=== PATIENT | male | born 1950 | race African-American/Black ===

== ENCOUNTER 2018-11-06 12:30 | Inpatient (IN) ==
[2018-11-06] MEDS ORDERED: NS 1,000 ML IV ONE ×2 (13:07→16:57)
--- NOTE | 2018-11-06 13:19 | Diag Imaging Result Doc PS360 ---
CHEST-PORTABLE - 11/06/2018 INDICATION: ams COMPARISON: None FINDINGS: The lungs are normally expanded and clear. Heart size and mediastinal contours are normal. No pneumothorax or pleural effusion. IMPRESSION: Negative exam. Electronically signed by Jorge Perez 11/06/2018 1:17 PM
[2018-11-06 13:26] LABS: BE 5.4 mmoll (-3.0-3.0); BLOOD TYPE ARTERIAL; HCO3-(ACT) 29.1 mmoll (20.0-26.0); METHB 1.1 % (0.0-1.5); O2(CT) 16.8 mL/dL (15.0-23.0); PCO2(98.6) 49 mmHg (35-45); PO2(98.6) 81 mmHg (60-100); SAMPLE BLOOD; SAO2 97.9 % (95.0-100.0); THB 12.5 g/dL (11.5-17.4); pH(98.6) 7.41 (7.35-7.45)
[2018-11-06 13:27] LABS: ALLEN TEST NO; MODALITY ROOM AIR
--- NOTE | 2018-11-06 13:35 | EKG Report ---
Test Performed on : 11/06/2018 1:17:02 PM Test Reason : ams Blood Pressure : / mmHG Vent. Rate : 074 BPM Atrial Rate : 074 BPM P-R Int : 172 ms QRS Dur : 082 ms QT Int : 364 ms P-R-T Axes : 058 011 047 degrees QTc Int : 404 ms Normal sinus rhythm. ST elevation, consider early repolarization, pericarditis, or injury Abnormal ECG No previous ECGs available Unconfirmed Result
[2018-11-06 13:52] LABS: BASO# 0.03 X1000 (0.0-0.2); BASO% 0.3 % (0.0-0.8); EOS# 0.14 X1000 (0.0-0.7); EOS% 1.3 % (0.0-10.0); HEMATOCRIT 43.5 % (42.0-52.0); HEMOGLOBIN 13.5 g/dL (14.0-18.0); IMM GRAN# 0.04 X1000 (0.0-0.04); IMM GRAN% 0.4 % (0.0-0.5); LYMPH# 1.51 X1000 (1.2-3.4); LYMPH% 13.8 % (20.5-51.1); MCH 26.5 PG (27-31); MCV 85.3 FL (81-99); MPV 12.8 FL (7.4-10.4); NEUT# 8.14 X1000 (1.4-6.5); NEUT% 74.2 % (42.2-75.2); PLT 188 X1000 (130-400); RDW 15.4 % (11.5-14.5); WBC 10.96 X1000 (4.8-10.8)
[2018-11-06 14:04] LABS: INR 0.97; PROTIME 13.7 Seconds (11.0-16.0)
[2018-11-06 14:23] LABS: CREATININE 1.6 mg/dL (0.7-1.2); MAGNESIUM 2.2 mg/dL (1.5-2.7); POTASSIUM 4.5 mmol/L (3.5-5.1); TOTAL BILIRUBIN 0.45 mg/dL (0.20-1.00); VALPROIC ACID 31.1 ug/mL (50-100)
[2018-11-06 14:24] LABS: CALCIUM 14.5 mg/dL (8.8-10.2)
--- NOTE | 2018-11-06 14:50 | PROVIDER DOCUMENTATION ---
This chart was entered by Karolina Mckeon Scribe, acting as scribe for Matt Dhillon MD. HPI-General Adult - General Chief Complaint: Weakness Stated Complaint: change in mental status Time Seen by Provider: 11/06/18 13:02 Source: patient, family Allergies/Adverse Reactions: Patient Allergies Allergy/AdvReac Type Severity Reaction Status Date / Time No Known Allergies Allergy Verified 11/06/18 14:28 Home Medications: Home Medication List Medication Instructions Recorded Confirmed Last Taken Type ATORVAstatin [Lipitor] 40 mg PO QHS 06/07/17 06/19/18 06/06/17 History Amlodipine [Norvasc] 5 mg PO DAILY 06/07/17 06/19/18 06/07/17 History Aspirin [Aspir-Low] 81 mg PO DAILY 06/07/17 06/19/18 06/07/17 History Atenolol 12.5 mg PO DAILY 06/19/18 06/19/18 Unknown History Travoprost [Travatan Z] 1 drop BOTH EYES HS 06/19/18 06/19/18 Unknown History Divalproex [Depakote Sprinkle] 375 mg PO QHS #90 cap 07/25/18 Unknown Rx Ergocalciferol (Vitamin D2) 50,000 unit PO Q7D #8 cap 07/25/18 Unknown Rx [Vitamin D] Fluoxetine [Prozac] 20 mg PO QAM #30 cap 07/25/18 Unknown Rx Medroxyprogesterone [Provera] 15 mg PO DAILY 30 Days tab 07/25/18 Unknown Rx Melatonin 5 mg PO QHS tablet 07/25/18 Unknown Rx Mirtazapine [Remeron] 15 mg PO QHS #30 tab 07/25/18 Unknown Rx Multivit,Fe,Ca,FA & Min [Thera M 1 each PO DAILY tablet 07/25/18 Unknown Rx Plus] Paliperidone Palmitate [Invega 234 mg IM Q30D #1 syringe 07/25/18 Unknown Rx Sustenna] Risperidone [Risperdal] 0.5 mg PO BID #60 tab 07/25/18 Unknown Rx Trazodone [Desyrel] 50 mg PO QHS #30 tab 07/25/18 Unknown Rx - History of Present Illness -Gen Adult Nature of Presenting Problems: 68 yobm presents to the ed via ems with c/o progressive decline in last 2 weeks. pt has family (niece) at bedside and sts pt has just seemed more weak and sleepy then in the past. pt is at SNF and family sts that when she goes to feed pt he will eat and drink but facility sts he had decreased appetite. pt on exam is lethargic but can be aroused by voice but quickly falls back to sleep Location of Pain/Injury: reports: generalized (weakness) Quality of Pain: reports: none Severity: reports: moderate Timing: reports: still present Context/Activities at Onset: reports: light activity Modifying Factors: improves with: nothing Associated Symptoms: reports: fatigue, weakness. denies: back/neck pain, chest pain, cough, fever/chills, nausea, shortness of breath, vomiting Similar Symptoms Previously?: Yes Recently seen or treated by another doctor?: No Review of Systems - Adult - REVIEW OF SYSTEMS - ADULT ROS:: ROS per family Constitutional: reports: see HPI, fatique. denies: chills, fever Eyes: reports: no symptoms reported Ears, Nose, Mouth & Throat: reports: no symptoms reported Cardiovascular: reports: no symptoms reported Respiratory: denies: cough, shortness of breath, wheezing Gastrointestinal: denies: abdominal pain, diarrhea, nausea, vomiting Genitourinary: reports: no symptoms reported Musculoskeletal: reports: see HPI, muscle weakness Integumentary: reports: no symptoms reported Neurological: denies: dizziness/vertigo, headache/migraines, slurred speech Psychiatric: reports: no symptoms reported Endocrine: reports: no symptoms reported Hematologic/Lymphatic: reports: no symptoms reported Allergic/Immunologic: reports: no symptoms reported All Other Systems: Reviewed and Negative Past History - Adult - PAST MEDICAL HISTORY-ADULT Review of Records: reports: Old Records Reviewed, Nursing Assessment Review, Medications Reviewed, Social history reviewed & non-contributory. Major Childhood Illnesses: reports: denies history Cardiovascular: reports: HTN Respiratory: reports: denies history Gastrointestinal: reports: denies history Obstetrical/Gynecological: reports: denies history Genitourinary: reports: denies history Musculoskeletal: reports: denies history Hand Dominance: Right Handed Neurological: reports: CVA, dementia Psychiatric: reports: schizophrenia Endocrine/Immune: reports: denies history Other Conditions: reports: denies history - PRIOR SURGERIES/PROCEDURES Surgical/Procedure History: reports: reviewed, not pertinent - IMMUNIZATION STATUS Childhood Immunizations: See Nurse Assessment Flu Vaccine: See Nurse Assessment - FAMILY HISTORY Family History: reviewed, not pertinent - SOCIAL HISTORY Smoking: non-smoker Substance Use: none/never Living Situation: care facility ([facility]) Physical Exam-General - PHYSICAL EXAM-ADULT Exam Limited by: pt will wake to voice but is not verbal. will follow commands to open eyes Initial Vital Signs Reviewed: Yes - CONSTITUTIONAL General Appearance: no apparent distress, lethargic, slow to respond - EYES Eyes: PERRL/EOMI, pale conjunctivae - HEAD, EARS, NOSE, MOUTH & THROAT HENMT: other (food seen on tongue). negative: moist mucous membranes (dry) - NECK Neck: normal inspection - RESPIRATORY Respiratory: chest non-tender, lungs clear, normal breath sounds - CARDIOVASCULAR Cardiovascular: normal peripheral pulses, regular rate, rhythm - GASTROINTESTINAL (ABDOMEN) Abdominal Exam: normal bowel sounds, soft - LYMPHATIC Lymphatic: no adenopathy - MUSCULOSKELETAL Extremity: no calf tenderness, normal capillary refill, pelvis stable - SKIN Integumentary: normal color, warm/dry. negative: normal turgor (poor skin turgor) - PSYCHIATRIC Psych/Mental Status: other (pt will follow command to open eyes but will not speak on exam) Progress - PLAN OF CARE/RESULTS Progress/Plan/Lab Results: Vital Signs - 8 hr 11/06/18 13:01 Temperature 98.3 F Pulse Rate 73 Respiratory Rate 16 Blood Pressure 136/83 O2 Sat by Pulse Oximetry 100 Orders Category Date Time Status Finger Stick Blood Sugar (ED) DIRECTED Care 11/06/18 13:05 Active Nursing- Obtain EKG once Care 11/06/18 13:05 Active Saline Loc NOW Care 11/06/18 13:05 Active CHEST-PORTABLE [RAD] Stat Exams 11/06/18 13:[address] HEAD W/O CONTRAST [CT] Stat Exams 11/06/18 13:07 Ordered ABG [RESP] Routine Lab 11/06/18 13:06 Ordered CBC WITH ELECTRONIC DIFF [HEME] Stat Lab 11/06/18 13:06 Uncollected COMPREHENSIVE METABOLIC PANEL [CHEM] Stat Lab 11/06/18 13:06 Uncollected MAGNESIUM [CHEM] Stat Lab 11/06/18 13:06 Uncollected PRO B-NATRIURETIC PEPTIDE Stat Lab 11/06/18 13:06 Uncollected PROTIME WITH INR [COAG] Stat Lab 11/06/18 13:06 Uncollected TROPONIN T Stat Lab 11/06/18 13:06 Uncollected TSH Stat Lab 11/06/18 13:06 Uncollected URINALYSIS W/POSS RFLX CULT [URINALYSIS] Stat Lab 11/06/18 13:06 Uncollected VALPROIC ACID [TDM] Stat Lab 11/06/18 13:06 Uncollected 0.9% Sodium Chloride Inj [Ns] 1,000 ml Med 11/06/18 13:07 Active IV 999 mls/hr EKG [EKG] Stat Ther 11/06/18 13:06 Ordered Result Diagrams: 11/06/18 13:35 11/06/18 13:35 - REASSESSMENT Reassessment #1 Time Reassessed: 14:37 Status: unchanged Reassessment #2 Time Reassessed: 14:48 Status: improving (Given IVF bolus. Extensive discussions with family RE DNR and palliative care consult ordered in ED. Patient is DNR per family. Needs admission for hydration/hypernatremia) - EKG 1 Time of EKG reading by physician:: 13:17 EKG Read and Signed by:: Matt Dhillon EKG Interpretation (*Must complete 3 of following elements*): Abnormal Rate: 74 Rhythm: nsr [place]: normal QRS: normal [place] Interval: normal Comments: st elevation, consider early repolarization, pericarditis or injury - XRAY 1 XRAY: Bilateral XRAY Study: Chest Impression: See EMR Report (CHEST-PORTABLE - 11/06/2018 INDICATION: ams COMPARISON: None FINDINGS: The lungs are normally expanded and clear. Heart size and mediastinal contours are normal. No pneumothorax or pleural effusion. IMPRESSION: Negative exam. Electronically signed by Jorge Perez 11/06/2018 1:17 PM 11/06/18 [id number] Interpreting Physician: Jorge Perez MD Dictated Date/Time: 11/06/18 1328 cc: Matt Dhillon MD; Torrey Benavidez MD) - CONSULTS/PCP/HOSPITALIST Notification #1 *Consult/PCP/Hospitalist*: dr quiñones [facility] Time Discussed: 14:37 Consult Disposition: Admit Departure - Departure Date of Disposition Decision: 11/06/18 Time of Disposition Decision: 14:49 DIAGNOSIS: Dehydration with hypernatremia Altered mental status, unspecified Qualifiers: Altered mental status type: somnolence Qualified Code(s): R40.0 - Somnolence Disposition: ADMITTED INPATIENT 09 Certified Medical Emergency: Emergent Condition: Fair Referrals and Follow-Ups: Torrey Benavidez MD [Primary Care Provider] - - Critical Care Note This patient required my direct & personal management of CC.: Yes Total Time (mins): 35 Critical Care Statement: This patient required my direct personal management to treat or rule out processes, the absence of which, could potentiallly result in sudden, clinically significant life or limb threatening deterioration. Attestation - Physician/ DESTINEY Attestation Patient care was provided by Advanced Practice Provider:: No The physician spent face to face time with patient:: Yes Advanced Practice Provider documentation review:: Supervising physician onsite and consulted in the evaluation and care of this patient. The physician did have a face to face encounter with the patient. This chart was documented by the indicated scribe, (Karolina Mckeon Scribe) and accurately reflects the services I performed and decisions made by me, Matt Dhillon MD, as attested by the provider's signature.
--- NOTE | 2018-11-06 15:30 | Diag Imaging Result Doc PS360 ---
EXAM: CT HEAD W/O CONTRAST - 11/06/2018 HISTORY: ams TECHNIQUE: CT head without contrast COMPARISON: 06/19/2018 FINDINGS: There are some atrophic changes and chronic microvascular ischemic changes similar to prior. There is no indication of recent infarct, although acute infarcts may not be immediately visible. There is no evidence of skull fracture. IMPRESSION: No visible acute intracranial abnormality. This exam was performed using automated exposure control, adjustment of mA or kV according to patient size, and/or use of iterative reconstruction technique. Electronically signed by Estiven Smith 11/06/2018 3:28 PM
[2018-11-06 16:23] LABS: URINE SOURCE CATH
[2018-11-06 16:26] LABS: BILIRUBIN URINE NEGATIVE (NEGATIVE); BLOOD URINE NEGATIVE (NEGATIVE); COLOR YELLOW; GLUCOSE URINE NEGATIVE (NEGATIVE); KETONE URINE NEGATIVE (NEGATIVE); LEUKOCYTES URINE NEGATIVE (NEGATIVE); NITRITE URINE NEGATIVE (NEGATIVE); PROTEIN URINE NEGATIVE (NEGATIVE); SP GRAVITY URINE 1.016; TURBIDITY URINE CLEAR (CLEAR); UROBILINOGEN URINE NORMAL (NORMAL)
[2018-11-06 16:27] LABS: UR EPITHELIAL CELLS <10 /HPF (<10); URINE BACTERIA NEGATIVE /HPF; URINE RBC <10 /HPF (<10); URINE WBC <10 /HPF (<10)
[2018-11-06] MEDS ORDERED: TYLENOL PO PRN (16:57)
[2018-11-06] MEDS ORDERED: ZOFRAN IV PRN (16:57)
--- NOTE | 2018-11-06 17:02 | HISTORY AND PHYSICAL ---
Mr. Vicente is in the dementia unit I believe at [facility] and the report is that the last couple weeks he has been more lethargic and less cooperative, not eating or drinking much and there is concern and I think family wanted him evaluated. Past medical history includes Alzheimer dementia, he is a patient of Dr. Chintan Troncoso. He has a history of being at [place] in 2012 and 2016 for psychosis. He was admitted here on 06/15/2018 after collapsing on the front porch in front I think the porch collapsed on him and collapsed on his niece by report and apparently had admissions more for psychiatric evaluation and care. He come in the hospital. He had pulled out his IV and [place] catheter and thought people were trying to kill him. ACT team started behavior therapy, they discharged with a diagnosis including acute encephalopathy, right lower lobe pneumonia, urinary tract infection, history of schizophrenia, history of depression, history of CVAs suggested on his CT scan, however was unable to get an MRI at that time. Suspected possible seizures. However an EEG was canceled as well. ALLERGIES: No known drug allergies. MEDICATIONS: Will review his home medications. PAST MEDICAL HISTORY: Once again best we can tell 1. Schizophrenia. 2. Urinary tract infection. 3. Questionable seizures. 4. Hypertension. 5. Glaucoma. 6. History of CVAs. PAST SURGICAL HISTORY: No documented surgery. SOCIAL HISTORY: Lives at [facility]. He used to smoke 2 packs a day for over 50 years. Alcohol on occasion. No illegal drugs. FAMILY HISTORY: No history of mental illness. Other pertinent medical history listed on past records. REVIEW OF SYSTEMS: Unable to obtain from him but according to the snf he is more lethargic, has less incentive, seems to be not eating or drinking as much, not sure if there is any significant weight loss that was not documented. No history of complaints of chest pain or shortness of breath or signs of focal pain or focal neurologic changes. PHYSICAL EXAM: Temperature 98.3 degrees, pulse 69, respirations 18, blood pressure 133/80. Pupils are equal. Conjunctivae is pink. Sclerae clear. No distended neck veins. I did not appreciate any cervical, supraclavicular adenopathy. LUNGS: Clear anterior lateral in all lung camacho. Breathing comfortably. CARDIOVASCULAR: Regular rhythm and rate without murmur or S3. PMI nondisplaced. Carotid, radial, femoral pulses 2+ and symmetrical. ABDOMEN: Soft, nondistended, nontender. Positive bowel sounds. No pedal edema. LAB: White count 10,960, hematocrit 43, platelet count 188,000, sodium 154, potassium 4.5, chloride 116, BUN was 30, creatinine 1.6, calcium was 14.5, osmolality 313, AST 107, ALT is 375, alkaline phosphatase 118, TSH 0.62, albumin was 4.0. Pro time 13.7, INR was 0.97. Valproic acid level is 31 which is low. Urinalysis unremarkable. Blood gas pH 7.41, pCO2 49, PO2 is 81, O2 saturation 97% that is on room air. Chest x-ray negative, lungs are normally expanded and clear, heart size and mediastinal contours are normal. No pneumothorax or pleural effusion. Head CT without contrast no visible acute intracranial abnormalities. ASSESSMENT AND PLAN: 1. Hypercalcemia. Calcium is 14.5. We will give him some normal saline and run it in at 125 mL an hour and we will send off for free calcium and parathyroid hormone level. Will also check his magnesium, will check thyroid with T4 and TSH, we have a TSH which is normal but we will check T4 and TSH. 2. Hypernatremia and suspect he is intravascular volume depleted so hypovolemia, hypernatremia. Once again will give some normal saline and see if we can hydrate him and see this will improve. 3. Underlying Alzheimer dementia. 4. Not sure about his nutritional status. Will see how he does with p.o. intake. 5. Questionable history of seizure. He is on Depakote, review of his medications he is on Lipitor 40 mg a day, Norvasc 5 mg a day, aspirin 81 mg a day, atenolol 12.5 mg a day, divalproex which is Depakote 375 mg p.o. at bedtime, vitamin D2 50,000 units p.o. daily, Prozac 20 mg a day, Provera 15 mg p.o. every 30 days medroxyprogesterone, melatonin 5 mg at bedtime, Remeron 15 mg at bedtime, multivitamin 1 a day, Invega Sustenna 234 mg IM every 30 days, Risperdal 0.5 mg b.i.d. and Desyrel 50 mg at bedtime, travoprost eye drops 1 drop both eyes at bedtime will continue those medications. cc: Ramone Reyes MD
[2018-11-06 17:39] LABS: CALCIUM 14.3 mg/dL (8.8-10.2); PHOSPHORUS 2.3 mg/dL (2.7-4.5)
[2018-11-06] MEDS: NS 1,000 ML IV SCH (18:59)
[2018-11-07] MEDS: NS 1,000 ML IV SCH ×3 (06:48→19:04)
[2018-11-07 08:20] LABS: BASO# 0.03 X1000 (0.0-0.2); BASO% 0.3 % (0.0-0.8); EOS# 0.17 X1000 (0.0-0.7); EOS% 1.6 % (0.0-10.0); HEMATOCRIT 35.3 % (42.0-52.0); HEMOGLOBIN 10.8 g/dL (14.0-18.0); IMM GRAN# 0.03 X1000 (0.0-0.04); IMM GRAN% 0.3 % (0.0-0.5); LYMPH# 1.92 X1000 (1.2-3.4); LYMPH% 18.6 % (20.5-51.1); MCH 26.4 PG (27-31); MCHC 30.6 g/dL (33-37); MCV 86.3 FL (81-99); MONO# 0.96 X1000 (0.11-0.59); MONO% 9.3 % (1.7-9.3); MPV 12.7 FL (7.4-10.4); NEUT# 7.22 X1000 (1.4-6.5); NEUT% 69.9 % (42.2-75.2); PLT 170 X1000 (130-400); RBC 4.09 XMIL (4.7-6.1); RDW 14.9 % (11.5-14.5); WBC 10.33 X1000 (4.8-10.8)
[2018-11-07 09:06] LABS: AGAP 6; ALBUMIN 3.2 g/dL (3.5-5.0); ALKALINE PHOSPHATASE 90 U/L (32-122); BUN 26 mg/dL (8-22); CHLORIDE 121 mmol/L (98-107); COSMO 313; CREATININE 1.4 mg/dL (0.7-1.2); ESTIMATED GFR > 60; GLUCOSE 75 mg/dL (70-104); GOT 85 U/L (10-34); GPT 271 U/L (10-44); MAGNESIUM 1.9 mg/dL (1.5-2.7); POTASSIUM 4.4 mmol/L (3.5-5.1); SODIUM 156 mmol/L (136-145); TCO2 29 mmol/L (25-35); TOTAL BILIRUBIN 0.46 mg/dL (0.20-1.00); TOTAL PROTEIN 6.5 g/dL (6.3-8.3)
--- NOTE | 2018-11-07 09:58 | Diag Imaging Result Doc PS360 ---
CHEST-PORTABLE - 11/07/2018 INDICATION: fu COMPARISON: 11/06/2018 FINDINGS: The lungs are normally expanded and clear. Heart size and mediastinal contours are normal. No pneumothorax or pleural effusion. IMPRESSION: Negative exam. Electronically signed by Jorge Perez 11/07/2018 9:56 AM
--- NOTE | 2018-11-07 15:08 | Diag Imaging Result Doc PS360 ---
EXAM: PARATHYROID W/SPECT 11/07/2018 HISTORY: elevated PTH elevated CA TECHNIQUE: Parathyroid scan with SPECT, 20.5 mCi of technetium 99m sestamibi COMMENT: The patient was scanned at 20 minutes and two hours. There is a focal area of increased activity present in the right neck. This is more conspicuous on the 20 minute images and the coronal SPECT images. IMPRESSION: Right parathyroid adenoma. Electronically signed by Rizwan Perez 11/07/2018 3:06 PM
--- NOTE | 2018-11-07 17:31 | PROGRESS NOTE ---
DATE: 11/07/2018 SUBJECTIVE: Mr. Vicente is a little more awake and alert. He has remained afebrile. OBJECTIVE: Vital signs: Temperature 98.9 degrees, pulse 60, respirations 18, blood pressure 148/62. HEENT: Pupils are equal and round. Lungs: Clear in all lung camacho. Cardiovascular: Regular rhythm and rate without murmur or S3. Abdomen: Soft. Skin: Warm and dry. I noticed she has a large skin tag on the upper back which is a little bit irritated from laying on it. LABORATORY: Review today white count 10,330, hematocrit 35, platelet count 170,000. Sodium was a little higher at 156, potassium 4.4, chloride 121, BUN 26, creatinine 1.4, which has come down from 1.6 yesterday. Calcium still running at 14. His thyroid was 0.99 and TSH was 0.62. Repeat chest x-ray was negative. Parathyroid scan, right parathyroid adenoma appreciated and his parathyroid level was 208 consistent with primary hyperparathyroidism. PLAN: Continue IV fluids. Will review his medications. He has underlying dementia as well. MEDICATIONS: He was taking Lipitor 40 mg at bedtime, Norvasc 5 mg a day, aspirin 81 mg a day, atenolol 12.5 mg daily, Depakote Sprinkles 375 at bedtime, vitamin D 02163 units weekly, Prozac 20 mg q.a.m., lactulose 20 mg q.a.m., Provera 15 mg a day, melatonin 10 mg at bedtime, Remeron 15 mg at bedtime, Risperdal 1 mg daily, Travatan eye drops, and Desyrel 100 mg at bedtime. cc: Ramone Reyes MD
--- NOTE | 2018-11-07 19:41 | Diag Imaging Result Doc PS360 ---
US SOFT TISSUE HEAD/NECK - 11/07/2018 INDICATION: Evaluate for thyroid nodules; hyperparathyroidism TECHNIQUE: Ultrasound thyroid COMPARISON: Parathyroid scan 11/07/2018 FINDINGS: The exam was challenging due to patient combativeness. There is a tiny cyst in the right lobe of the thyroid measuring 3 mm. There are a couple small nodules on the left side. One in the upper pole measures 7 mm. One in the lower pole measures about 1.3 cm. No fluid collections. IMPRESSION: Suboptimal exam due to patient factors. Small echogenic abnormalities in the thyroid. Electronically signed by Jorge Perez 11/07/2018 7:39 PM
--- NOTE | 2018-11-07 20:33 | GENERAL SURGERY CONSULTATION ---
DATE: 11/07/2018 HISTORY OF PRESENT ILLNESS: This is a 68-year-old gentleman. He does have a psychiatric history that consists of schizophrenia and dementia. He apparently has had worsening mental status over the last 3-4 months. He has become more lethargic, less cooperative, not eating and drinking very much. His niece became concerned. He was brought for lab work and found to be hypercalcemic, with an elevated PTH of 200. He is admitted for management of this with IV fluids. CT of the head showed no acute intracranial process. He did have a parathyroid localization scan that showed a right parathyroid adenoma and a thyroid ultrasound that shows multinodular goiter. PAST MEDICAL HISTORY: 1. Schizophrenia. 2. Hypertension. 3. Depression. 4. Dementia. 5. History of questionable seizures. 6. Glaucoma. 7. History of CVA. PAST SURGICAL HISTORY: No surgery documented. No cervical history. SOCIAL HISTORY: He lives at [facility]. He does smoke 2 packs a day for 50 years. Occasional alcohol. His only family member is a niece. FAMILY HISTORY: Reviewed and significant for mental illness. REVIEW OF SYSTEMS: Ten-point negative that is able to be obtained, mostly from his niece. PHYSICAL EXAMINATION: Temperature is 98.9 degrees, pulse 63, blood pressure 148/62, oxygen saturation 97%. In general he is alert, appears to be in no acute distress but nonconversant. On cervical exam there are no masses. There is no adenopathy. No scars. Cardiovascular: Normal rate. Pulmonary: No increased work of breathing. Abdomen is soft, nontender, nondistended. Integument is warm and dry. Psychiatric: Not verbally responsive. Neurologic: Generalized slowing. He does not really follow commands, but he is alert. Lymphatic: No cervical, axillary or inguinal adenopathy. Peripheral vascular: Well perfused in the lower extremities. LABORATORY DATA: White count is 10, hematocrit 35. Creatinine is 1.4. His Calcium was as high as 14.3, is 14 currently. Phosphorus is low at 2.3. Bilirubin is normal. AST, ALT mildly elevated. Intact PTH is 208. Urinalysis is clear. ASSESSMENT AND PLAN: This is a 68-year-old gentleman with primary hyperparathyroidism. He has apparent [id number] psychiatric changes, and I have recommended, given the level of his elevated calcium, proceeding to the operating room tomorrow for a parathyroidectomy with intraoperative parathyroid hormone monitoring. He has a nuclear medicine scan localized to the right. Thyroid ultrasound shows many benign cystic-appearing nodules bilaterally. I discussed risks of bleeding, infection, neurovascular injury and persistent or recurrent symptoms with his niece. She understands and consents. We will plan to go the operating room tomorrow for this. cc: Thaddeus Sanders MD MTDD
[2018-11-07] MEDS: DEPAKOTE SPRINKLE PO SCH (21:36)
[2018-11-07] MEDS: MELATONIN PO SCH (21:36)
[2018-11-07] MEDS: DESYREL PO SCH (21:36)
[2018-11-07] MEDS: REMERON PO SCH (21:36)
[2018-11-07] MEDS: TRAVATAN 0.004% OPH SOLN BOTH EYES SCH (21:37)
[2018-11-08] MEDS: NS 1,000 ML IV SCH ×4 (01:52→18:56)
[2018-11-08] MEDS ORDERED: XYLOCAINE 1%/EPI 1:100,000 ONE (06:52)
[2018-11-08] MEDS ORDERED: MARCAINE 0.25% PF ONE (06:52)
[2018-11-08 08:18] LABS: AGAP 6; ALBUMIN 3.4 g/dL (3.5-5.0); ALKALINE PHOSPHATASE 100 U/L (32-122); BUN 27 mg/dL (8-22); CHLORIDE 117 mmol/L (98-107); COSMO 302; CREATININE 1.3 mg/dL (0.7-1.2); ESTIMATED GFR > 60; GLUCOSE 74 mg/dL (70-104); GOT 78 U/L (10-34); GPT 246 U/L (10-44); MAGNESIUM 1.8 mg/dL (1.5-2.7); PHOSPHORUS 2.4 mg/dL (2.7-4.5); POTASSIUM 4.3 mmol/L (3.5-5.1); SODIUM 150 mmol/L (136-145); TCO2 27 mmol/L (25-35); TOTAL BILIRUBIN 0.44 mg/dL (0.20-1.00); TOTAL PROTEIN 6.7 g/dL (6.3-8.3)
[2018-11-08] MEDS ORDERED: SENSORCAINE-MPF 0.5%/EPI 1:200,000 ONE (09:33)
[2018-11-08] MEDS ORDERED: SODIUM CHLORIDE 0.9% 10 ML ONE (09:41)
[2018-11-08] MEDS ORDERED: XYLOCAINE-MPF 2% ONE (09:41)
[2018-11-08] MEDS ORDERED: NORCURON ONE (09:41)
[2018-11-08] MEDS ORDERED: DIPRIVAN 1% ONE (09:41)
[2018-11-08] MEDS ORDERED: QUELICIN (DOSE) ONE (09:42)
[2018-11-08] MEDS ORDERED: KEFZOL 2 GM/D5W 2 GM/50 ML IVPB ONE (09:53)
[2018-11-08] MEDS ORDERED: FENTANYL ONE (10:35)
[2018-11-08] MEDS: LACTULOSE PO SCH (10:46)
[2018-11-08] MEDS: PROVERA PO SCH (10:47)
[2018-11-08] MEDS: THERA M PLUS PO SCH (10:47)
[2018-11-08] MEDS ORDERED: NEOSTIGMINE ONE (11:57)
[2018-11-08] MEDS ORDERED: ROBINUL ONE (11:57)
--- NOTE | 2018-11-08 13:16 | PROGRESS NOTE ---
DATE: 11/08/2018 SUBJECTIVE: He is scheduled for a parathyroidectomy and presented with hypercalcemia. He does have underlying dementia, but seemed to have altered mental status, increased sedation, and very lethargic. The family had noticed a change. OBJECTIVE: On exam, he is awake. He appears to be comfortable. Temperature 97.3 degrees, pulse 83, respirations 16, and blood pressure 143/69. Pupils are equal and round. Lungs are clear in all lung camacho. Cardiovascular regular rhythm and rate without murmur or S3. Urine output is 3700 mL. ASSESSMENT AND PLAN: 1. Hypercalcemia primary hyperparathyroidism. Appears to have an adenoma on the right side for surgery. He is going to have surgery this morning. 2. History of seizure disorder. Continue his Depakote. 3. History of vitamin D deficiency. Continue vitamin D at a later point. Right now, we are holding it because of hypercalcemia. 4. History of depression and psychiatric issues. I think he was even diagnosed with schizophrenia and underlying dementia. I wonder how much of the hypercalcemia play a role in that so we will see how we do. LABORATORIES: His calcium this morning was 14 with an albumin of 3.4, creatinine 1.3, and sodium 150 which has come down. Potassium 4.3, chloride 117, and BUN 27. cc: Ramone Reyes MD
[2018-11-08] MEDS: PROZAC PO SCH (14:52)
[2018-11-08] MEDS: RISPERDAL PO SCH (14:52)
--- NOTE | 2018-11-08 17:14 | OPERATIVE NOTE ---
PROCEDURE DATE: 11/08/2018 PREOPERATIVE DIAGNOSIS: Primary hyperparathyroidism with psychosis. POSTOPERATIVE DIAGNOSES: Primary hyperparathyroidism with psychosis. PROCEDURE PERFORMED: 1. Right-sided parathyroidectomy. 2. Intraoperative PTH monitoring. ANESTHESIA: General. ESTIMATED BLOOD LOSS: 20 mL. SPECIMENS: 1. Right inferior parathyroid. 2. Right superior parathyroid adenoma. INDICATIONS: This is a 68-year-old gentleman who has a history of well- controlled schizophrenia, who has become progressively more somnolent and nonverbal over the last 4 months. He was admitted for further workup of this and found to be profoundly hypercalcemic with elevated PTH nuclear medicine located in the right side of the neck. OPERATIVE FINDINGS: There was a normal appearing parathyroid gland at the inferior location anterior to the recurrent laryngeal nerve and a large parathyroid adenoma in the superior position posterior to the upper lobe of the thyroid. Preoperative PTH was 170 and holding, it fell to 68 after removal of the parathyroid adenoma. OPERATIVE NOTE: Risks, benefits, alternatives were discussed with his next of kin, his niece, and she consented to procedures. He was seen preoperatively. Surgical site was confirmed. He was taken to the operating room, placed supine position. General anesthesia induced. His neck was extended and his shoulders placed on a bump and his bilateral neck, chest prepped with Betadine and draped in usual fashion. After time-out, we made a transverse incision, carried this down through the platysma and divided the strap muscles along the midline. We gained exposure with a Weitlaner and mobilized the strap muscles off the right lobe of the thyroid. We extended this laterally. The middle thyroid vein was identified, and was divided with the LigaSure device. We also took some of the inferior pole vessels after identifying the recurrent laryngeal nerve. It coursed in its usual location. There was a small parathyroid anterior to the nerve, which we did remove, passed off to the back table and preserved in case we were to retransplant that. However, shortly thereafter we identified a large adenoma posterior to the upper lobe of the thyroid that we circumferentially dissected off. We placed a clip on the feeding vessel, passed it off protecting the recurrent laryngeal nerve through this process. At 10 minutes, we senthil from the internal jugular vein. A PTH that had dropped to 94. We closed the neck and a subsequent PTH drawn 15 to 20 minutes after it dropped to 68. The strap muscles, after confirming hemostasis, were closed with interrupted 3-0 Vicryl sutures. The platysma was closed with interrupted 3-0 Vicryl and the skin was closed with knotless 4-0 Monocryl. Dermabond was applied. He was awakened. There was no stridor. Transferred to recovery. Will follow his calcium and start him on supplementation. cc: Thaddeus Sanders MD MTDD
[2018-11-08 18:12] LABS: AGAP 8; BUN 27 mg/dL (8-22); CALCIUM 12.6 mg/dL (8.8-10.2); CHLORIDE 117 mmol/L (98-107); COSMO 301; CREATININE 1.4 mg/dL (0.7-1.2); ESTIMATED GFR > 60; GLUCOSE 90 mg/dL (70-104); MAGNESIUM 1.6 mg/dL (1.5-2.7); PHOSPHORUS 2.2 mg/dL (2.7-4.5); POTASSIUM 3.9 mmol/L (3.5-5.1); SODIUM 149 mmol/L (136-145); TCO2 24 mmol/L (25-35)
[2018-11-08] MEDS ORDERED: MAGNESIUM SULFATE 2 GM/S.W.I. 2 GM/50 ML IVPB IV ONE (19:30)
[2018-11-08] MEDS: REMERON PO SCH (20:20)
[2018-11-08] MEDS: TRAVATAN 0.004% OPH SOLN BOTH EYES SCH (20:20)
[2018-11-08] MEDS: DESYREL PO SCH (20:20)
[2018-11-08] MEDS: DEPAKOTE SPRINKLE PO SCH (20:20)
[2018-11-08] MEDS: MELATONIN PO SCH (20:20)
[2018-11-08] MEDS ORDERED: CALCIUM GLUCONATE 1 GM in NS 50 ML IV ONE (21:00)
[2018-11-08] MEDS ORDERED: OSCAL 500 PO SCH (21:00)
[2018-11-09] MEDS: NS 1,000 ML IV SCH ×3 (00:12→16:58)
[2018-11-09] MEDS: LACTULOSE PO SCH (08:30)
[2018-11-09] MEDS: PROZAC PO SCH (08:31)
[2018-11-09] MEDS: PROVERA PO SCH (08:31)
[2018-11-09] MEDS: RISPERDAL PO SCH (08:32)
[2018-11-09] MEDS: THERA M PLUS PO SCH (08:32)
[2018-11-09] MEDS ORDERED: CALCIUM GLUCONATE 1 GM in NS 50 ML IV ONE (09:00)
[2018-11-09] MEDS ORDERED: CALCIUM GLUCONATE IV ONE (09:00)
[2018-11-09 10:23] LABS: AGAP 6; BUN 25 mg/dL (8-22); CALCIUM 10.6 mg/dL (8.8-10.2); CHLORIDE 121 mmol/L (98-107); COSMO 303; CREATININE 1.4 mg/dL (0.7-1.2); ESTIMATED GFR > 60; GLUCOSE 72 mg/dL (70-104); POTASSIUM 4.1 mmol/L (3.5-5.1); SODIUM 151 mmol/L (136-145); TCO2 24 mmol/L (25-35)
--- NOTE | 2018-11-09 13:47 | GENERAL SURGERY PROGRESS NOTE ---
DATE: 11/09/2018 SUBJECTIVE: More alert but still nonconversant. Neck wound is flat. He is not taking anything p.o. OBJECTIVE: No fevers, no tachycardia, blood pressure 143/61. LABORATORY DATA: I reviewed his labs. His calcium has fallen to 10.6 this morning. Magnesium last night was 1.6. ASSESSMENT AND PLAN: A 68-year-old gentleman status post parathyroidectomy on the right. We will continue IV calcium repletion as he not taken anything p.o., gluconate twice daily intravenously and transition this to x1. Monitor his calcium going forward. His pathology shows a 1.5 cm parathyroid adenoma in the superior gland and a hyperplastic parathyroid tissue inferiorly. Dr. Mckeon is following our patients over the weekend. I have discussed this patient with him. cc: Thaddeus Sanders MD
--- NOTE | 2018-11-09 14:39 | PROGRESS NOTE ---
DATE: 11/09/2018 SUBJECTIVE: He is resting comfortably. Did not arouse. Breathing comfortably. OBJECTIVE: Remains afebrile. Temperature 97.9 degrees, pulse 60, respirations 15, and blood pressure 143/61. Pupils are equal and round. Lungs are clear in all lung camacho anterolateral. Cardiovascular exam regular rhythm and rate without murmur or S3. Urine output was 5300 mL so a good urine output. ASSESSMENT AND PLAN: 1. Hypercalcemia, hyperparathyroidism, right-sided adenoma which was removed by Dr. Sanders. 2. History of seizure disorder. He is on Depakote. 3. Vitamin D deficiency. We are going to hold the vitamin D for now. 4. Depression. History of psychiatric illness. Continue present orders and see how we do. FOLLOWUP LABORATORIES: White count 10,330, hematocrit 35 and platelet count 170,000. Electrolytes this morning, calcium is down to 10, sodium 151, potassium 4.1, chloride 121, BUN 25, and creatinine 1.4. MEDICATIONS: This review of orders getting Depakote 375 mg at bedtime, melatonin 10 mg at bedtime, Remeron 15 mg at bedtime, Desyrel 100 mg at bedtime, Prozac 20 mg every morning, lactulose 30 mL p.o. b.i.d., medroxyprogesterone 50 mg p.o. daily, multivitamin 1 a day, normal saline 125 mL an hour. He gets paliperidone 234 mg IM q.30 hours. Risperidone 1 mg daily. Travoprost eyedrops both eyes at night. cc: Ramone Reyes MD
[2018-11-09] MEDS: DEPAKOTE SPRINKLE PO SCH (20:30)
[2018-11-09] MEDS: MELATONIN PO SCH (20:30)
[2018-11-09] MEDS: REMERON PO SCH (20:30)
[2018-11-09] MEDS: TRAVATAN 0.004% OPH SOLN BOTH EYES SCH (20:30)
[2018-11-09] MEDS: DESYREL PO SCH (20:30)
[2018-11-10] MEDS: NS 1,000 ML IV SCH (02:55)
[2018-11-10] MEDS: PROZAC PO SCH (10:04)
[2018-11-10] MEDS: LACTULOSE PO SCH (10:04)
[2018-11-10] MEDS: PROVERA PO SCH (10:04)
[2018-11-10] MEDS: RISPERDAL PO SCH (10:04)
[2018-11-10] MEDS: THERA M PLUS PO SCH (10:04)
[2018-11-10] MEDS: 1/2 NS 1,000 ML IV SCH ×2 (11:26→19:41)
--- NOTE | 2018-11-10 11:38 | PROGRESS NOTE ---
DATE: 11/10/2018 SUBJECTIVE: His niece was at the bedside. He did wake up this morning and was talking. He is sleeping repeat comfortably at the present time. OBJECTIVE: Vital Signs: On exam, temperature 98.8 degrees, pulse 57, respirations 18, blood pressure 162/63. Eyes: Pupils are equal and round. Neck: No distended neck veins. Lungs: Clear anterolateral. Cardiovascular exam: Regular rhythm and rate without murmur or S3. Abdomen: Soft. Skin: Warm and dry. : Urine output is 4500 mL. ASSESSMENT AND PLAN: 1. Hypercalcemia, hyperparathyroidism, right-sided adenoma, status post resection, doing well. Calcium has come back to normal. He is waking up. 2. Questionable history of seizure disorder. He is on Depakote. 3. Vitamin D deficiency. Continue vitamin D. 4. Depression and questionable history of schizophrenia. Currently, he is on some medications. I think we will stop his Depakote I think that we will continue the Remeron for now, and we will continue the Risperdal and his paliperidone and put him on a full liquid diet. We will get physical therapy to start working with him, and I will change his fluid from normal saline to one-half normal saline, still run it at 125 mL an hour for now as his sodium is still a little elevated. cc: Ramone Reyes MD
[2018-11-10] MEDS: DESYREL PO SCH (19:59)
[2018-11-10] MEDS: MELATONIN PO SCH (19:59)
[2018-11-10] MEDS: TRAVATAN 0.004% OPH SOLN BOTH EYES SCH (20:00)
[2018-11-10] MEDS: REMERON PO SCH (20:00)
[2018-11-11] MEDS: 1/2 NS 1,000 ML IV SCH ×3 (03:59→20:35)
[2018-11-11 06:54] LABS: AGAP 9; ALB/GLOB RATIO 0.9; ALBUMIN 2.8 g/dL (3.5-5.0); ALKALINE PHOSPHATASE 88 U/L (32-122); BUN 17 mg/dL (8-22); CALCIUM 10.4 mg/dL (8.8-10.2); CHLORIDE 114 mmol/L (98-107); COSMO 293; ESTIMATED GFR > 60; GLUCOSE 79 mg/dL (70-104); GOT 49 U/L (10-34); GPT 123 U/L (10-44); MAGNESIUM 1.8 mg/dL (1.5-2.7); PHOSPHORUS 2.6 mg/dL (2.7-4.5); POTASSIUM 3.2 mmol/L (3.5-5.1); SODIUM 147 mmol/L (136-145); TCO2 24 mmol/L (25-35); TOTAL BILIRUBIN 0.46 mg/dL (0.20-1.00); TOTAL PROTEIN 5.8 g/dL (6.3-8.3)
[2018-11-11] MEDS: LACTULOSE PO SCH (10:20)
[2018-11-11] MEDS: PROVERA PO SCH (10:21)
[2018-11-11] MEDS: THERA M PLUS PO SCH (10:21)
[2018-11-11] MEDS: RISPERDAL PO SCH (10:21)
--- NOTE | 2018-11-11 13:06 | PROGRESS NOTE ---
DATE: 11/11/2018 SUBJECTIVE: Mr. Vicente is awake and alert. He is laying on his left side. He appears comfortable. He seemed to know he was in the hospital. I am not sure he knew the month or the year. He has been tolerating a liquid diet, swallowing okay by report. OBJECTIVE: Vital Signs: Temp 98 degrees, pulse 74, respirations 18, blood pressure 149/71. HEENT: Pupils are equal and round. Lungs: Clear in all lung camacho. Cardiovascular: Regular rhythm and rate without murmur or S3. Abdomen: Soft. Skin: Warm and dry. LABORATORY DATA: Potassium from yesterday was a little low at 3.2, calcium now is 10.4 with an underlying albumin of 2.8, and his sodium has come down to 147. Magnesium was 1.8. ASSESSMENT AND PLAN: 1. Hypercalcemia, hyperparathyroidism, right-sided parathyroid adenoma status post resection, doing well. Calcium has come back. Continue hydration. 2. Hypernatremia. This is improving. Continue one-half normal saline. Continue current hydration. 3. History of seizure disorder, questionable. I had gone ahead and stopped his Depakote. 4. History of depression and schizophrenia. Have continued him on Remeron 15 mg at bedtime, Desyrel 100 mg at bedtime, risperidone 1 mg daily, and I will supplement a little bit of potassium by mouth. cc: Ramone Reyes MD
[2018-11-11] MEDS: KLOR-CON PO SCH (13:37)
--- NOTE | 2018-11-11 16:43 | PROGRESS NOTE ---
DATE: 11/11/2018 Mr. Woodrow Carrasco for his 68-year-old male status post parathyroidectomy per Dr. Sanders. He has become more alert over the last 2 days. His wound is healing well. His calcium is 10.4. There is no evidence of hoarseness or other cranial nerve injury. cc: Andreia Mckeon MD
[2018-11-11] MEDS: MELATONIN PO SCH (19:52)
[2018-11-11] MEDS: DESYREL PO SCH (19:52)
[2018-11-11] MEDS: REMERON PO SCH (19:52)
[2018-11-11] MEDS: TRAVATAN 0.004% OPH SOLN BOTH EYES SCH (19:52)
[2018-11-12] MEDS: MELATONIN PO SCH ×2 (06:36→22:31)
[2018-11-12] MEDS: TRAVATAN 0.004% OPH SOLN BOTH EYES SCH ×2 (06:36→22:31)
[2018-11-12] MEDS: REMERON PO SCH ×2 (06:36→22:30)
[2018-11-12] MEDS: DESYREL PO SCH ×2 (06:36→22:30)
[2018-11-12 07:08] LABS: AGAP 7; BUN 11 mg/dL (8-22); CALCIUM 10.9 mg/dL (8.8-10.2); CHLORIDE 115 mmol/L (98-107); COSMO 291; ESTIMATED GFR > 60; GLUCOSE 86 mg/dL (70-104); MAGNESIUM 1.7 mg/dL (1.5-2.7); POTASSIUM 3.1 mmol/L (3.5-5.1); SODIUM 147 mmol/L (136-145); TCO2 25 mmol/L (25-35)
[2018-11-12] MEDS: KLOR-CON PO SCH (09:47)
[2018-11-12] MEDS: PROVERA PO SCH (09:47)
[2018-11-12] MEDS: RISPERDAL PO SCH (09:47)
[2018-11-12] MEDS: THERA M PLUS PO SCH (09:47)
[2018-11-12] MEDS: LACTULOSE PO SCH (09:48)
[2018-11-12] MEDS: 1/2 NS 1,000 ML IV SCH ×2 (11:27→16:39)
--- NOTE | 2018-11-12 17:53 | PROGRESS NOTE ---
DATE: 11/12/2018 SUBJECTIVE: Mr. Vicente was sleeping. He appeared comfortable. He was arousable but did not stay awake long. OBJECTIVE: Temperature 97.9 degrees, pulse 75, respirations 16, blood pressure 143/110. His blood pressures have been running between 131 and 152 over 65 to 80, so blood pressures have been under good control. ASSESSMENT AND PLAN: 1. Status post thyroid adenoma resection. Doing well. Hypercalcemia has come down nicely. Calcium is 10.9. Sodium has come down as well and is 147, potassium 3.1, chloride 115, BUN 11, creatinine 1.0. He is lethargic today, and I may decrease some of his medications. 2. Hyponatremia, improving. 3. History of seizure disorder, which is questionable. We did stop the Depakote. 4. He has a history of depression, schizophrenia. Of course the question is how long has he had this hypercalcemia. I am going to decrease his trazodone down to 50 mg at bedtime. We will continue to try and get physical therapy and see if we can improve his p.o. intake. His normal saline going at 85 mL an hour now, and he still on Risperdal 1 mg daily, medroxyprogesterone mg daily, lactulose 30 mL daily, Remeron 15 mg at bedtime, melatonin 10 mg. cc: Ramone Reyes MD MTDD
--- NOTE | 2018-11-12 17:59 | GENERAL SURGERY PROGRESS NOTE ---
DATE: 11/12/2018 SUBJECTIVE: He seems more alert. Still not really verbal. OBJECTIVE: Neck: On exam, his incision is flat. Vital signs: No fevers. No tachycardia. Blood pressure 143/110. General: His voice does sound strong but mostly just mumbling. LABORATORY: I reviewed his labs. Calcium is still mildly elevated 10.9, but this is down significantly from 14. Magnesium 1.7. Potassium is low. ASSESSMENT AND PLAN: This is a 68-year-old gentleman status post parathyroidectomy for primary hyperparathyroidism. Monitor his calcium for now. He is not on any supplementation other than potassium and a multivitamin. We will monitor him closely. cc: Thaddeus Sanders MD
[2018-11-13] MEDS: 1/2 NS 1,000 ML IV SCH ×4 (04:11→23:42)
[2018-11-13 08:33] LABS: AGAP 7; BUN 10 mg/dL (8-22); CALCIUM 10.6 mg/dL (8.8-10.2); CHLORIDE 108 mmol/L (98-107); COSMO 279; CREATININE 1.1 mg/dL (0.7-1.2); ESTIMATED GFR > 60; GLUCOSE 79 mg/dL (70-104); POTASSIUM 3.4 mmol/L (3.5-5.1); SODIUM 141 mmol/L (136-145); TCO2 26 mmol/L (25-35)
[2018-11-13] MEDS: PROVERA PO SCH (09:32)
[2018-11-13] MEDS: RISPERDAL PO SCH (09:33)
[2018-11-13] MEDS: LACTULOSE PO SCH (09:33)
[2018-11-13] MEDS: THERA M PLUS PO SCH (09:33)
[2018-11-13] MEDS: KLOR-CON PO SCH (09:34)
[2018-11-13] MEDS ORDERED: ATIVAN IV ONE (13:45)
--- NOTE | 2018-11-13 13:56 | PROGRESS NOTE ---
DATE: 11/13/2018 INTERVAL HISTORY: The patient is arousable with difficulty but immediately falls back asleep. Not really following commands with me currently, although was reportedly following limited commands with Nursing earlier and nursing reports intermittent agitation. No acute events overnight. REVIEW OF SYSTEMS: Unable to obtain secondary to patient mental status. LABORATORY DATA: Sodium 141, potassium 3.4, chloride 108, BUN 10, creatinine 1.1, glucose 79, calcium 10.6, albumin 2.9. PHYSICAL EXAMINATION: Vitals: T-max 98.5 degrees, pulse 89, respirations 16, blood pressure 142/70, O2 saturation 100% on room air. General: No acute distress. Vitals: As above. HEENT: Normocephalic, atraumatic. Moist mucous membranes. Neck: No cervical adenopathy. Anterior neck incision clean, dry, intact. Cardiovascular: Regular rate and rhythm with no murmurs, rubs, or gallops. Pulmonary: Clear to auscultation bilaterally. Abdomen: Soft, nontender, nondistended. Bowel sounds positive. Extremities: Peripheral pulses decreased but intact. No clubbing, cyanosis, or edema. Neurologic: Exam limited by patient's mental status, but face is symmetric. Pupils equal, round, reactive to light. Grimaces and withdraws to noxious stimuli in all 4 limbs. No focal deficits identified. Psychiatric: The patient is asleep, arousable with difficulty, does not really follow commands or speak currently. Skin: No new rashes or lesions identified. ASSESSMENT AND PLAN: 1. Hypercalcemia, primary parathyroid adenoma: Patient status post parathyroidectomy by Surgery. Hypercalcemia improved although remains mildly elevated with calcium 10.6, albumin 2. Awaiting further surgical recommendations. 2. Lethargy. The patient with history of dementia and schizophrenia quite somnolent and not very reactive today. Uncertain as to his exact baseline. We will continue monitoring for now, but may have to make further adjustment in his home medicines. Currently on his home medications invega, but off of Depakote. No seizure noted. Suspect he was on this for psychiatric reasons and may restart it if further agitation develops. 3. Hypernatremia. Much improved. We will continue to monitor. 4. History of schizophrenia and dementia. The patient in memory unit at [facility] prior to admission. The patient's home Depakote has been held, but still on his home risperidone and long-acting Invega as well as Remeron. Monitor mental status. [facility]O
--- NOTE | 2018-11-13 14:02 | GENERAL SURGERY PROGRESS NOTE ---
DATE: 11/13/2018 SUBJECTIVE: Mental status about the same. Neck flat. Calcium 10.6. No fevers, no tachycardia. Blood pressure 160/65. General. He is awake but not conversant. ASSESSMENT/PLAN: 68-year-old gentleman status post parathyroidectomy for primary hyperparathyroidism. Mental status slow to resolve. His calcium is better. Will continue current care holding calcium supplementation at this juncture. cc: Thaddeus Sanders MD
[2018-11-13] MEDS: MELATONIN PO SCH (20:37)
[2018-11-13] MEDS: DEPAKOTE SPRINKLE PO SCH (20:37)
[2018-11-13] MEDS: TRAVATAN 0.004% OPH SOLN BOTH EYES SCH (20:37)
[2018-11-13] MEDS: DESYREL PO SCH (20:38)
[2018-11-13] MEDS: REMERON PO SCH (20:38)
[2018-11-14] MEDS: 1/2 NS 1,000 ML IV SCH ×4 (04:15→23:35)
[2018-11-14 07:50] LABS: AGAP 7; BUN 8 mg/dL (8-22); CHLORIDE 111 mmol/L (98-107); COSMO 284; CREATININE 1.1 mg/dL (0.7-1.2); ESTIMATED GFR > 60; GLUCOSE 75 mg/dL (70-104); POTASSIUM 3.5 mmol/L (3.5-5.1); SODIUM 144 mmol/L (136-145); TCO2 26 mmol/L (25-35)
[2018-11-14] MEDS: THERA M PLUS PO SCH (09:57)
[2018-11-14] MEDS: RISPERDAL PO SCH (09:57)
[2018-11-14] MEDS: PROVERA PO SCH (09:57)
[2018-11-14] MEDS: KLOR-CON PO SCH (09:57)
[2018-11-14] MEDS: LACTULOSE PO SCH (09:59)
--- NOTE | 2018-11-14 13:50 | PROGRESS NOTE ---
DATE: 11/14/2018 INTERVAL HISTORY: The patient remains quite sedated. On discussion with nursing, he aroused and was cooperative with breakfast this morning. At the time of my exam, he withdraws to noxious stimuli but does not respond otherwise. Does not follow commands. No acute events overnight. REVIEW OF SYSTEMS: Unable to obtain secondary to the patient's mental status. LABS: Sodium 144, potassium 3.5, BUN 8, creatinine 1.1, calcium 10.0. VITAL SIGNS: Vital Signs: T-max 98.5, pulse rate is 66, blood pressure 138/67, respirations 18, O2 saturation 100% on room air. PHYSICAL EXAMINATION: General: No acute distress. Vital Signs: As above. HEENT: Normocephalic, atraumatic. Moist mucous membranes. No cervical lymphadenopathy. Anterior neck incision is clean, dry, and intact. Cardiovascular: Regular rate and rhythm. No murmurs, rubs, or gallops. Pulmonary: Clear to auscultation bilaterally. No wheezes, rales, or rhonchi noted. Abdomen: Soft, nontender, nondistended. Bowel sounds positive. Extremities: Peripheral pulses decreased but intact. No clubbing, cyanosis, or edema. Neurologic: Exam quite limited by patient's mental status but face is symmetric. Pupils equal, round, and reactive to light. Continues to grimace and withdraw to noxious stimuli in all four limbs. No clear focal deficits identified. Psychiatric: Patient is somnolent. Arousable only with difficulty. When eyelids are open, he does resist and track with eyes. Not really following commands or speaking to me currently, but will reportedly cooperate with nursing intermittently. Skin: No new rash or lesions identified. ASSESSMENT AND PLAN: 1. Hypercalcemia, primary parathyroid adenoma: The patient is status post thyroidectomy by surgery. Hypercalcemia now improved to the normal range. Likely discharge back to long-term care if/when cleared by surgery. 2. Lethargy: Patient with history of significant dementia and schizophrenia. Intermittently quite somnolent. This is likely at or near his baseline. Continue home medications. 3. Hypernatremia, resolved. Monitor. 4. History of schizophrenia and dementia. The patient was in a memory unit prior to admission. Patient continued on home medications. [facility]
--- NOTE | 2018-11-14 17:55 | GENERAL SURGERY PROGRESS NOTE ---
DATE: 11/14/2018 SUBJECTIVE: He is more conversive this morning and actually spoke to me. His calcium is down to 10. OBJECTIVE: His incision is fine. ASSESSMENT: A 68-year-old gentleman who is status post parathyroidectomy, doing well. He seems to be more alert and conversant. PLAN: Will continue current management. cc: Thaddeus Sanders MD
[2018-11-14] MEDS: DESYREL PO SCH (20:14)
[2018-11-14] MEDS: DEPAKOTE SPRINKLE PO SCH (20:14)
[2018-11-14] MEDS: MELATONIN PO SCH (20:14)
[2018-11-14] MEDS: REMERON PO SCH (20:14)
[2018-11-14] MEDS: TRAVATAN 0.004% OPH SOLN BOTH EYES SCH (23:35)
[2018-11-15] MEDS: 1/2 NS 1,000 ML IV SCH ×2 (06:26→15:44)
[2018-11-15 08:03] LABS: AGAP 8; BUN 7 mg/dL (8-22); CALCIUM 10.6 mg/dL (8.8-10.2); CHLORIDE 110 mmol/L (98-107); COSMO 280; ESTIMATED GFR > 60; GLUCOSE 70 mg/dL (70-104); POTASSIUM 3.8 mmol/L (3.5-5.1); SODIUM 142 mmol/L (136-145); TCO2 24 mmol/L (25-35)
[2018-11-15] MEDS: PROVERA PO SCH (10:31)
[2018-11-15] MEDS: KLOR-CON PO SCH (10:32)
[2018-11-15] MEDS: LACTULOSE PO SCH (10:32)
[2018-11-15] MEDS: THERA M PLUS PO SCH (10:32)
[2018-11-15] MEDS: RISPERDAL PO SCH (10:32)
--- NOTE | 2018-11-15 14:20 | PROGRESS NOTE ---
DATE: 11/15/2018 INTERVAL HISTORY: The patient is doing well. A little more awake today. Will occasionally give one-word answers to questions, although not always appropriately. Will rarely follow commands. No acute events overnight. REVIEW OF SYSTEMS: Unable to obtain secondary to patient's mental status. LABS: Basic metabolic panel unremarkable aside from calcium 10.6. VITAL SIGNS: T-max 98.7 degrees, pulse 70, blood pressure 137/63, O2 saturation 100% on room air. PHYSICAL EXAMINATION: General: No acute distress. Vital Signs: As above. HEENT: Normocephalic, atraumatic. Moist mucous membranes. No cervical adenopathy. Incision remains clean, dry, and intact. Cardiovascular: Regular rate and rhythm. No murmurs, rubs, or gallops Pulmonary: Clear to auscultation bilaterally. No wheezing, rales, or rhonchi noted. Abdomen: Soft, nontender, nondistended. Bowel sounds positive. Extremities: Peripheral pulses decreased but intact. No clubbing, cyanosis, or edema. Neurologic: Limited by patient's mental status, but face is symmetric. Pupils equal, round, reactive to light. Occasional one-word answers are not slurred. Occasionally moves limbs spontaneously but not really to commands. No clear focal deficits. Psychiatric: Patient awake, alert, but does not really answer orientation questions. Does track with eyes. Still not really following commands. ASSESSMENT AND PLAN: 1. Hypercalcemia, primary parathyroid adenoma. The patient is status post parathyroidectomy by Surgery. Hypercalcemia has improved postop, although it is slightly higher today. Likely discharge back to long-term care if/when cleared by Surgery. 2. Lethargy. Patient with history of significant dementia and schizophrenia. Intermittently quite somnolent but this may be at or near baseline. 3. Hypernatremia, resolved. Monitor. 4. Schizophrenia and dementia. Continue home medications as above.
[2018-11-15] MEDS ORDERED: ATIVAN IV ONE (17:36)
[2018-11-15] MEDS: DESYREL PO SCH (21:56)
[2018-11-15] MEDS: MELATONIN PO SCH (21:56)
[2018-11-15] MEDS: REMERON PO SCH (21:56)
[2018-11-15] MEDS: TRAVATAN 0.004% OPH SOLN BOTH EYES SCH (21:56)
[2018-11-15] MEDS: DEPAKOTE SPRINKLE PO SCH (21:56)
[2018-11-16] MEDS: 1/2 NS 1,000 ML IV SCH ×2 (03:38→18:00)
[2018-11-16 07:37] LABS: AGAP 8; BUN 9 mg/dL (8-22); CALCIUM 10.7 mg/dL (8.8-10.2); CHLORIDE 106 mmol/L (98-107); COSMO 274; CREATININE 0.9 mg/dL (0.7-1.2); ESTIMATED GFR > 60; GLUCOSE 64 mg/dL (70-104); SODIUM 139 mmol/L (136-145); TCO2 25 mmol/L (25-35)
[2018-11-16] MEDS: KLOR-CON PO SCH (09:49)
[2018-11-16] MEDS: RISPERDAL PO SCH (09:49)
[2018-11-16] MEDS: LACTULOSE PO SCH (09:49)
[2018-11-16] MEDS: PROVERA PO SCH (09:50)
[2018-11-16] MEDS: THERA M PLUS PO SCH (09:50)
--- NOTE | 2018-11-16 12:45 | PROGRESS NOTE ---
DATE: 11/16/2018 INTERVAL HISTORY: The patient remains quite confused and intermittently somnolent but no acute events overnight. REVIEW OF SYSTEMS: Unable to obtain secondary to patient's mental status. LABS: Basic metabolic panel unremarkable aside from calcium 10.7. VITALS: T-max 98.4, pulse 64, respirations 16, blood pressure 134/68, O2 saturation 99% on room air. PHYSICAL EXAM: General: No acute distress. Vitals: As above. HEENT: Normocephalic, atraumatic. Moist mucous membranes. No cervical adenopathy. Cardiovascular: Regular rate and rhythm. No murmurs, rubs, or gallops. Pulmonary: Clear to auscultation bilaterally. No wheezing, rales or rhonchi. Abdomen: Soft, nontender, nondistended. Bowel sounds positive. Extremities: Peripheral pulses remain decreased but intact. No clubbing, cyanosis, or edema. Neurologic: Exam remains limited by mental status, but no focal deficits identified. Psychiatric: Patient is asleep, arouses briefly, but not really following commands. ASSESSMENT/PLAN: 1. Hypercalcemia, primary parathyroid adenoma. Patient is status post parathyroidectomy by Surgery. Hypercalcemia improved postop but slight up-trend over the last couple of days. Likely discharge back to long-term care if/when cleared by Surgery. 2. Lethargy. Patient with history of significant dementia and schizophrenia. Intermittently quite somnolent. Discussed with nursing and family. Reportedly patient at baseline is always confused and intermittently does not like to speak but is generally more awake than he is currently. Will hold some of his sedating medications and see if he wakes up a little better. 3. Hypernatremia, resolved. Continue to monitor. 4. Schizophrenia and dementia. We will hold some of his home medications as above. If significant agitation develops then will restart.
[2018-11-16] MEDS: TRAVATAN 0.004% OPH SOLN BOTH EYES SCH (21:57)
[2018-11-16] MEDS: MELATONIN PO SCH (21:57)
[2018-11-16] MEDS: DESYREL PO SCH (21:57)
[2018-11-16] MEDS: REMERON PO SCH (21:57)
[2018-11-17] MEDS: 1/2 NS 1,000 ML IV SCH ×2 (04:58→17:08)
[2018-11-17 07:30] LABS: BASO# 0.02 X1000 (0.0-0.2); BASO% 0.3 % (0.0-0.8); EOS# 0.12 X1000 (0.0-0.7); HEMATOCRIT 32.1 % (42.0-52.0); HEMOGLOBIN 10.4 g/dL (14.0-18.0); IMM GRAN# 0.04 X1000 (0.0-0.04); IMM GRAN% 0.7 % (0.0-0.5); LYMPH# 1.33 X1000 (1.2-3.4); LYMPH% 22.4 % (20.5-51.1); MCH 26.6 PG (27-31); MCHC 32.4 g/dL (33-37); MCV 82.1 FL (81-99); MONO# 0.84 X1000 (0.11-0.59); MONO% 14.2 % (1.7-9.3); NEUT# 3.58 X1000 (1.4-6.5); NEUT% 60.4 % (42.2-75.2); PLT 125 X1000 (130-400); RBC 3.91 XMIL (4.7-6.1); RDW 14.7 % (11.5-14.5); WBC 5.93 X1000 (4.8-10.8)
[2018-11-17 07:55] LABS: AGAP 11; ALBUMIN 3.2 g/dL (3.5-5.0); BUN 7 mg/dL (8-22); CALCIUM 10.7 mg/dL (8.8-10.2); CHLORIDE 105 mmol/L (98-107); COSMO 278; CREATININE 1.1 mg/dL (0.7-1.2); ESTIMATED GFR > 60; GLUCOSE 76 mg/dL (70-104); POTASSIUM 3.6 mmol/L (3.5-5.1); SODIUM 141 mmol/L (136-145); TCO2 25 mmol/L (25-35)
[2018-11-17] MEDS: KLOR-CON PO SCH (09:30)
[2018-11-17] MEDS: THERA M PLUS PO SCH (09:30)
[2018-11-17] MEDS: PROVERA PO SCH (09:30)
[2018-11-17] MEDS: LACTULOSE PO SCH (09:31)
--- NOTE | 2018-11-17 13:19 | PROGRESS NOTE ---
DATE: 11/17/2018 INTERVAL HISTORY: The patient is somewhat more awake and responsive today. Will occasionally give one-word answers, although remains noncooperative for the most part. REVIEW OF SYSTEMS: Unable to obtain secondary to patient's mental status. LABORATORY DATA: WBC 5.9, hemoglobin 10.4, hematocrit 32.1, platelets 125,000. Chemistry unremarkable aside from calcium 10.7, albumin 3.2, creatinine 1.1. PHYSICAL EXAMINATION: Vital signs: T-max 98.9 degrees, pulse 67, respirations 18, blood pressure 131/63, O2 saturation 100% on room air. General: No acute distress. HEENT: Normocephalic, atraumatic. Moist mucous. Neck: Cervical adenopathy. Cardiovascular: Regular rate and rhythm. No murmurs, rubs, or gallops. Pulmonary: Clear to auscultation bilaterally. No wheezing, rales, or rhonchi. Abdomen: Soft, nontender, nondistended. Bowel sounds positive. Extremities: Peripheral pulses intact but ran slightly decreased. No clubbing, cyanosis, or edema. Neurologic: Remains limited by mental status, but no focal deficits identified. Pupils remain equal, reactive to light. Tracks with eyes well to all quadrants. Occasional single words are clear with no slurring. Psychiatric: Patient awake, alert, occasional single word answers, but largely uncooperative. ASSESSMENT AND PLAN: 1. Hypercalcemia, primary parathyroid adenoma. The patient is status post parathyroidectomy by Surgery. Hypercalcemia improved postop and slightly up for the last couple of days. Awaiting further Surgery recommendations. 2. Lethargy. The patient with history of significant dementia, schizophrenia, and intermittently quite somnolent. Holding some of his home sedating medications currently to see if he may improve. Does seem to be slightly better today, so we will continue to hold those and monitor closely. 3. Hypernatremia, resolved. Continue to monitor. 4. Schizophrenia, dementia. Holding some of his home medications as above. If significant agitation develops, then we will likely restart.
[2018-11-17] MEDS: DESYREL PO SCH (21:30)
[2018-11-17] MEDS: MELATONIN PO SCH (21:30)
[2018-11-17] MEDS: REMERON PO SCH (21:30)
[2018-11-17] MEDS: TRAVATAN 0.004% OPH SOLN BOTH EYES SCH (21:30)
[2018-11-18] MEDS: 1/2 NS 1,000 ML IV SCH ×2 (05:29→16:19)
[2018-11-18 07:32] LABS: AGAP 8; BUN 5 mg/dL (8-22); CALCIUM 9.7 mg/dL (8.8-10.2); CHLORIDE 106 mmol/L (98-107); COSMO 274; CREATININE 0.8 mg/dL (0.7-1.2); ESTIMATED GFR > 60; GLUCOSE 77 mg/dL (70-104); POTASSIUM 3.8 mmol/L (3.5-5.1); SODIUM 139 mmol/L (136-145); TCO2 25 mmol/L (25-35)
[2018-11-18] MEDS: THERA M PLUS PO SCH (11:18)
[2018-11-18] MEDS: KLOR-CON PO SCH (11:18)
[2018-11-18] MEDS: PROVERA PO SCH (11:18)
[2018-11-18] MEDS: LACTULOSE PO SCH (11:18)
--- NOTE | 2018-11-18 12:22 | PROGRESS NOTE ---
DATE: 11/18/2018 INTERVAL HISTORY: The patient remains awake and alert but is still not really cooperative. No acute events overnight. REVIEW OF SYSTEMS: Unable to obtain secondary to patient's mental status. LABS: Calcium improved to 9.7. Basic metabolic panel otherwise unremarkable. VITALS: T-max 98.9 degrees, pulse 71, respirations 18, blood pressure 143/70, O2 saturation 98% on room air. PHYSICAL EXAMINATION: General: No acute distress. HEENT: Normocephalic, atraumatic. Moist mucous membranes. No cervical adenopathy. Cardiovascular: Regular rate and rhythm. No murmurs, rubs, or gallops. Pulmonary: Clear to auscultation bilaterally. No wheezing, rales, or rhonchi. Abdomen: Soft, nontender, nondistended. Bowel sounds positive. Extremities: Peripheral pulses remain slightly decreased but intact. No clubbing, cyanosis, or edema. Neurologic: Examination remains limited by mental status but no focal deficits identified. Not following commands, but tracking with eyes and will occasionally move all extremities. Psychiatric: Patient is awake, alert. Occasional single word answers but not clearly oriented at all, and largely uncooperative. ASSESSMENT AND PLAN: 1. Hypercalcemia, primary parathyroid adenoma. The patient is status post parathyroidectomy by surgery. Hypercalcemia improved postoperatively and then increased again but is again improved today. Awaiting further surgery recommendations. 2. Lethargy. Patient with history of significant dementia, schizophrenia, and intermittently quite somnolent. Holding some of his sedating medications and he does appear to be more awake with that. No significant agitation. We will continue to hold those and monitor. 3. Hypernatremia, resolved. Continue to monitor labs. 4. Schizophrenia, dementia. Holding some of his home medications as above. If significant agitation develops, then we may restart some of those.
[2018-11-18] MEDS: DESYREL PO SCH (20:48)
[2018-11-18] MEDS: TRAVATAN 0.004% OPH SOLN BOTH EYES SCH (20:48)
[2018-11-18] MEDS: MELATONIN PO SCH (20:48)
[2018-11-18] MEDS: REMERON PO SCH (20:48)
[2018-11-19] MEDS: 1/2 NS 1,000 ML IV SCH ×2 (04:09→17:33)
[2018-11-19 07:12] LABS: AGAP 9; BUN 4 mg/dL (8-22); CALCIUM 10.6 mg/dL (8.8-10.2); CHLORIDE 107 mmol/L (98-107); COSMO 275; CREATININE 0.9 mg/dL (0.7-1.2); ESTIMATED GFR > 60; GLUCOSE 76 mg/dL (70-104); POTASSIUM 4.2 mmol/L (3.5-5.1); SODIUM 140 mmol/L (136-145); TCO2 24 mmol/L (25-35)
[2018-11-19] MEDS: KLOR-CON PO SCH (09:05)
[2018-11-19] MEDS: THERA M PLUS PO SCH (09:05)
[2018-11-19] MEDS: PROVERA PO SCH (09:05)
[2018-11-19] MEDS: LACTULOSE PO SCH (09:05)
--- NOTE | 2018-11-19 12:31 | PROGRESS NOTE ---
DATE: 11/19/2018 INTERVAL HISTORY: Patient mental status essentially unchanged. No acute events overnight. Discussed current status with his niece, who to the best of our knowledge, is his surviving relative. REVIEW OF SYSTEMS: Unable to obtain secondary to patient's mental status. LABORATORY DATA: Calcium 10.6. Basic metabolic panel otherwise unremarkable. VITAL SIGNS: Temperature 98.7 degrees, pulse 71, respirations 18, blood pressure 129/78, O2 saturation 100% on room air. PHYSICAL EXAMINATION: General: No acute distress. Vitals: As above. HEENT: Normocephalic, atraumatic. Moist mucous membranes. Neck: No cervical adenopathy. Cardiovascular: Regular rate and rhythm with no murmurs, rubs, or gallops. Pulmonary: Clear to auscultation bilaterally. No wheezing, rales. No rhonchi. Abdomen: Soft, nontender, nondistended. Bowel sounds positive. Extremities: Peripheral pulses remain slightly decreased but intact. No clubbing, cyanosis, or edema. Neurologic: Exam still limited by mental status, but no focal deficits identified. Not following commands for me, but reportedly will follow commands with nursing enough to eat. Psychiatric: Patient asleep but arousable, although remains largely uncooperative. ASSESSMENT AND PLAN: 1. Hypercalcemia, primary parathyroid adenoma. the patient is status post parathyroidectomy by Surgery. Hypercalcemia improved from admission. Occasional mild elevated, but fairly stable overall. Awaiting final surgery recommendations, but if they do not have anything else that needs to be done while inpatient, then anticipate discharge back to long-term facility tomorrow. 2. Lethargy. Patient with history of dementia and schizophrenia. Has been fairly somnolent. This reportedly began several weeks prior to admission. We are holding some of his home sedating medications to see if he will be more awake. Little improvement in his average level of arousal, but also no significant agitation that would require us to restart his medication. Plan on continuing to hold these for as long as the patient does not become significantly agitated. 3. Hypernatremia, resolved. Continue to monitor. 4. Dementia and possible schizophrenia. Holding home medications as above with no apparent ill effect. Could consider restarting these if patient experiences significant agitation. Discussed with niece, who confirmed that patient does not have any history of seizure disorder and that he was on Depakote prior to admission for psychiatric reasons.
[2018-11-19] MEDS: MELATONIN PO SCH (21:23)
[2018-11-19] MEDS: DESYREL PO SCH (21:23)
[2018-11-19] MEDS: REMERON PO SCH (21:23)
[2018-11-19] MEDS: TRAVATAN 0.004% OPH SOLN BOTH EYES SCH (21:23)
[2018-11-20] MEDS: 1/2 NS 1,000 ML IV SCH ×2 (02:39→15:50)
[2018-11-20] MEDS: PROVERA PO SCH (08:48)
[2018-11-20] MEDS: LACTULOSE PO SCH (08:48)
[2018-11-20] MEDS: THERA M PLUS PO SCH (08:48)
[2018-11-20] MEDS: KLOR-CON PO SCH (08:48)
--- NOTE | 2018-11-20 15:41 | PROGRESS NOTE ---
DATE: 11/20/2018 SUBJECTIVE: Patient resting comfortably in bed. OBJECTIVE: Vital signs: Temperature 97.8 degrees, pulse 68, blood pressure is 150/70, and oxygen saturation is 100%. HEENT: Atraumatic and normocephalic. Cardiovascular: S1, S2. Respiratory: Evidence of good entry bilaterally. Abdomen: Soft, nontender. No masses felt. Extremities: No evidence of edema. Central nervous system: No obvious focal deficits noted. LABORATORY DATA: None today. ASSESSMENT AND PLAN: 1. Hypercalcemia probably secondary to primary hyperparathyroidism from parathyroid adenoma. The patient is status post parathyroidectomy. We will continue to follow the patient clinically as well as follow up on calcium level. 2. Dementia. The patient is not agitated at this time. We will use antipsychotics if the patient becomes agitated. 3. History of schizophrenia. Would resume his psych medications for this condition. 4. Deep vein thrombosis prophylaxis. SCD's. cc: Calderon Allen MD
[2018-11-20] MEDS: MELATONIN PO SCH (20:52)
[2018-11-20] MEDS: TRAVATAN 0.004% OPH SOLN BOTH EYES SCH (20:52)
[2018-11-20] MEDS: REMERON PO SCH (20:53)
[2018-11-20] MEDS: DESYREL PO SCH (20:53)
[2018-11-20] MEDS: DEPAKOTE SPRINKLE PO SCH (20:55)
[2018-11-21] MEDS: PROVERA PO SCH (10:09)
[2018-11-21] MEDS: RISPERDAL PO SCH (10:09)
[2018-11-21] MEDS: THERA M PLUS PO SCH (10:09)
[2018-11-21] MEDS: KLOR-CON PO SCH (10:09)
[2018-11-21] MEDS: LACTULOSE PO SCH ×2 (10:10→10:31)
[2018-11-21] MEDS: 1/2 NS 1,000 ML IV SCH (11:53)
--- NOTE | 2018-11-21 13:34 | DISCHARGE SUMMARY ---
ADMISSION DATE: 11/06/2018 DISCHARGE DATE: PRINCIPAL DIAGNOSIS: Hypercalcemia secondary to primary hyperparathyroidism secondary to parathyroid adenoma. SECONDARY DIAGNOSES: 1. Hypernatremia. 2. Alzheimer's dementia. 3. Seizure disorder. 4. Schizophrenia. 5. Anemia. 6. History of glaucoma. 7. History of CVA. 8. History of depression. DISCHARGE MEDICATIONS: Include the followin. Potassium chloride 10 mEq p.o. daily. 2. Atorvastatin 40 mg p.o. at bedtime. 3. Aspirin 81 mg p.o. daily. 4. Amlodipine 5 mg p.o. daily. 5. Atenolol 25 mg p.o. daily. 6. Travatan 1 drop both eyes at bedtime. 7. Multivitamin daily. 8. Vitamin D 250,000 units every 7 days. 9. Fluoxetine 10 mg p.o. daily. 10. Invega Sustenna 234 mg IM every 30 days. 11. Depakote Sprinkle 375 mg at bedtime. 12. Remeron 50 mg at bedtime. 13. Lactulose 20 mg orally daily. 14. Provera 50 mg p.o. daily for hypersexuality. 15. Melatonin 10 mg p.o. at bedtime. 16. Risperidone 1 mg p.o. daily. 17. Trazodone 100 mg p.o. at bedtime. CONSULTATIONS DURING HOSPITAL STAY: Dr. Tenzin Sanders, Surgery. SPECIAL PROCEDURES DONE DURING THIS HOSPITAL STAY: 1. CT scan of the head 11/06/2018. 2. Ultrasound head and neck 11/07/2018. 3. Parathyroid scan 11/07/2018. HOSPITAL COURSE: Mr. Woodrow Cardenas is a 68-year-old male and was admitted to the hospital with a diagnosis of hypercalcemia. Calcium level was as high as 14.5. He was placed on intravenous fluids. On admission, his sodium level was elevated at 154. The patient had a parathyroid scan done on 11/07/2018 which showed evidence of a parathyroid adenoma. We subsequently had parathyroidectomy done by Dr. Sanders on 11/08/2018. Postop, the patient seemed to have done fairly well. Calcium level obtained on 11/19/2018 was 10.6. At this time, patient is clinically stable. He can be discharged back to the senior care facility. His diet will be healthy heart. Activity will be as tolerated. DISCHARGE EXAMINATION: During my evaluation this morning, his temperature was 98.3 degrees, pulse 77, respiratory 20, blood pressure 102/59, and oxygen saturation 100%. HEENT: Atraumatic, normocephalic. Cardiovascular: S1, S2. Respiratory: Evidence of good air entry bilaterally. Abdomen: Soft, nontender. No masses felt. Extremities: No evidence of edema. Central nervous system: No obvious focal deficit. PLAN: Discharge back to senior care facility. Follow up with primary care physician in the outpatient. Also follow up with General Surgery as well. cc: Calderon Allen MD
[2018-11-21 20:06] VITALS: BP 122/64
[2018-11-21] MEDS: DEPAKOTE SPRINKLE PO SCH (21:24)
[2018-11-21] MEDS: DESYREL PO SCH (21:24)
[2018-11-21] MEDS: REMERON PO SCH (21:25)
[2018-11-21] MEDS: MELATONIN PO SCH (21:25)
[2018-11-27] MEDS ORDERED: INVEGA SUSTENNA IM SCH (09:00)
== END 2018-11-21 23:41 | DRG 626 ==
LOC: SUPCPDRO → EDBD → MERGE 12:30 → ED 12:30 → SUATTDRO 15:28 → EDIPHOLD 15:28 → 3N 18:05
PROVIDERS: ATTEND Internal Medicine
CPT/HCPCS: 51701; 70450; 71010; 71045; 76536; 78071; 80048; 80053; 80164; 80165; 81001; 82040; 82310; 82533; 82607; 82746; 82805; 82948; 83735; 83880; 83970; 84100; 84439; 84443; 84484; 85025; 85610; 88305; 93005; 96360; 99285; 99291; A9270; A9500; J0330; J0610; J0690; J2060; J3010; J3475; J7030; P9612; S0020; XXXXX